=== PATIENT | female | born 1965 | race Caucasian/White ===

== ENCOUNTER 2017-02-19 12:20 | Day surgery (SDC) | payer BC ==
[2017-02-16 18:10] LABS: HEMATOCRIT 32.5 % (36.0-48.0); HEMOGLOBIN 10.9 g/dL (12.0-16.0)
[2017-02-16 18:29] LABS: BUN (BLOOD UREA NITROGEN) 21 MG/DL (6-23); CALCIUM, SERUM 9.8 MG/DL (8.5-10.4); CHLORIDE, SERUM 109 MMOL/L (96-112); CO2 (CARBON DIOXIDE) 30 MMOL/L (24-34); CREATININE 1.23 MG/DL (0.55-1.02); GFR AFRICAN AMERICAN 58 ML/MIN (>=60); GFR NON AFRICAN AMERICAN 50 ML/MIN (>=60); GLUCOSE, SERUM 104 MG/DL (60-99); POTASSIUM, SERUM 4.4 MMOL/L (3.5-5.3); SODIUM, SERUM 143 MMOL/L (135-148)
[~2017-02-19 12:20] MED LIST: BENTYL20 PO; CLARIT10 PO; FLAGYL250 MG PO; PRILOSEC40 MG PO; PRIN10 PO; PROAIR HFA INH; VITAMIN D31000 UNIT PO
== END 2017-02-19 23:24 | disposition home or self-care (01) ==
LOC: SDC/OF 12:20
PROVIDERS: Family Medicine
DX: E25.8 Other adrenogenital disorders (principal); E27.8 Other specified disorders of adrenal gland
CPT/HCPCS: 74183; 80048; 82962; 85014; 85018; 93005; A9270-GY; A9577; J2405; J2550; J2710